=== PATIENT | female | born 1960 | race Caucasian/White ===

== ENCOUNTER 2023-09-17 10:22 | Emergency (ER) | payer OTHER ==
[~2023-09-17] VITALS: Ht 162.6 cm; Wt 139.1 kg
[2023-09-17 10:56] LABS: BASO # 0.04 K/mm3 (0.02-0.10); EOS # 0.17 K/mm3 (0.04-0.40); EOS % 1.9 % (1.0-5.0); HEMATOCRIT 45.9 % (37.0-47.0); LYMPH# 1.53 K/mm3 (1.50-4.00); MEAN CELL VOLUME 90 fl (78-100); MEAN CORPUSCULAR HEMOGLOBIN 30 pg (27-31); MEAN CORPUSCULAR HGB CONC 33 g/dL (33-37); MEAN PLATELET VOLUME 9.1 fl (7.4-10.4); MONO # 0.51 K/mm3 (0.20-0.80); NEU # 6.85 K/mm3 (1.40-6.50); PLATELET COUNT 318 K/mm3 (130-400); RED BLOOD COUNT 5.08 M/mm3 (4.10-5.30); RED CELL DISTRIBUTION WIDTH 12.7 % (11.5-14.5); WHITE BLOOD COUNT 9.1 K/mm3 (4.8-10.8)
[2023-09-17 11:18] LABS: ALBUMIN 4.4 g/dL (3.4-4.8)
[2023-09-17 11:19] LABS: CALCIUM 10.7 mg/dL (8.3-10.5)
[2023-09-17 11:20] LABS: TOTAL PROTEIN 7.5 g/dL (6.2-8.1)
[2023-09-17 11:22] LABS: TOTAL BILIRUBIN 0.4 mg/dL (0.2-1.2)
[2023-09-17 12:26] VITALS: BP 171/89
== END 2023-09-17 12:34 | disposition home or self-care (01) ==
LOC: ED 10:22
PROVIDERS: Family Medicine
DX: S09.90XA Unspecified injury of head, initial encounter (principal); S81.011A Laceration without foreign body, right knee, initial encounter; W18.30XA Fall on same level, unspecified, initial encounter; Y93.01 Activity, walking, marching and hiking; Y92.009 Unspecified place in unspecified non-institutional (private) residence as the place of occurrence of the external cause